=== PATIENT | female | born 1945 | race Caucasian/White ===

== ENCOUNTER 2016-10-03 06:50 | Day surgery (SDC) | payer MEDICARE ==
[~2016-10-03] VITALS: Ht 162.6 cm; Wt 48.4 kg
[~2016-10-03 06:50] MED LIST: ADVA250A INH; ALBUAER3 INH; CIPR500T2 PO; CREON12 PO; GABA600T PO; LEVO25TA4 PO; METO-309 PO; OMEP20TA PO; PLAV75TA29 PO; PRED20 PO; PRIM50TA5 PO; WALKER/ADULT/FO1 MIS; WHEEMIS3
[2016-10-03] MEDS ORDERED: SODIUM BICARBONATE 100 MEQ in D5W 1000 ML IV SCH (07:30)
[2016-10-03 07:38] VITALS: BP 197/101; PULSE 79; RESP 18; TEMP 97.9; O2SAT 99
[2016-10-03] MEDS ORDERED: POTA10TA8 PO (07:52)
[2016-10-03] MEDS ORDERED: GUAISYP4 PO (07:52)
[2016-10-03] MEDS ORDERED: FLUT1SPR5 EACH NARE (07:52)
[2016-10-03] MEDS ORDERED: PANT20TA2 PO (07:52)
[2016-10-03 09:07] LABS: AUTOMATED NEUTROPHIL # 4.3 TH/MM3 (1.8-7.7); BASOPHIL # 0.1 TH/MM3 (0-0.2); BASOPHIL % 1.3 % (0.0-2.0); EOSINOPHIL # 0.1 TH/MM3 (0-0.4); HEMATOCRIT 36.7 % (35.0-46.0); HEMO FLAGS DIFF FINAL; LYMPH % 20.6 % (9.0-44.0); LYMPHOCYTE # 1.3 TH/MM3 (1.0-4.8); MEAN CELL VOLUME 90.7 FL (80.0-100.0); MEAN CORPUSCULAR HEMOGLOBIN 30.9 PG (27.0-34.0); MONO % 8.7 % (0.0-8.0); NEUT % 67.4 % (16.0-70.0); PLATELET COUNT 306 TH/MM3 (150-450); RED BLOOD COUNT 4.05 MIL/MM3 (4.00-5.30); RED CELL DISTRIBUTION WIDTH 13.9 % (11.6-17.2); WHITE BLOOD COUNT 6.4 TH/MM3 (4.0-11.0)
[2016-10-03 09:16] LABS: APTT (PATIENT) 24.5 SEC (24.3-30.1); INTERNATIONAL NORMALIZED RATIO 0.9 RATIO; PROTHROMBIN TIME - PATIENT 10.4 SEC (9.8-11.6)
[2016-10-03] MEDS ORDERED: HEPARIN-NS/PF INJ 500 ML ONE (09:19)
[2016-10-03] MEDS ORDERED: MIDAZOLAM HCL 2 MG/2 ML VIAL ONE ×2 (09:19→11:03)
[2016-10-03 09:24] LABS: BICARBONATE 28.1 MEQ/L (21.0-32.0); POTASSIUM 3.9 MEQ/L (3.5-5.1)
[2016-10-03] MEDS ORDERED: HEPARIN SODIUM - IV 10,000 UNITS/10 ML VIAL ONE (10:03)
[2016-10-03] MEDS ORDERED: NITROGLYCERIN INJ 5 ML ONE (10:03)
[2016-10-03] MEDS ORDERED: VERAPAMIL HCL 5 MG/2 ML VIAL ONE (10:08)
[2016-10-03] MEDS ORDERED: PROTAMINE SULFATE 50 MG/5 ML VIAL ONE (11:00)
[2016-10-03] MEDS ORDERED: IOHEXOL 350 MG/ML 100 ML BTL (for Cath Lab) OTHER ONE (11:00)
[2016-10-03] MEDS ORDERED: METOPROLOL TARTRATE 50 MG TAB PO SCH (14:15)
[2016-10-03] MEDS ORDERED: PRIMIDONE 50 MG TAB PO SCH (14:15)
--- NOTE | 2016-10-04 18:37 | MP ---
cc: JOSEPH DONNELLY DATE OF SURGERY 10/03/16 PREOPERATIVE DIAGNOSIS Toe discoloration with a slow healing wound of the left lower extremity. POSTOPERATIVE DIAGNOSIS Toe discoloration with a slow healing wound of the left lower extremity. PROCEDURES 1. Angiogram of aorta with selective left lower extremity arteriogram. 2. Pelvic arteriogram. 3. Kissing stents with a right common iliac artery atrium I cast stent which is a 6 x 22 and then a left common iliac artery 7 x 59 SURGEON Ha Donnelly DO ESTIMATED BLOOD LOSS Minimal, moderate sedation COMPLICATIONS None. PROCEDURE IN DETAIL The patient's bilateral groins and legs were prepped and draped in sterile fashion after being under moderate sedation. I got access to the right common femoral artery using duplex ultrasound. I placed a 21-gauge needle, did an exchange for a 5-Mosotho sheath then I advanced an Omni flush catheter over stiff angled Glidewire in the abdominal aorta. I shot an AP aortogram. Then I pulled my catheter down into the distal abdominal aorta and I shot pelvic oblique arteriograms. Then I did a nonselective angiogram of the left lower extremity from the distal abdominal aorta. My findings were that the abdominal aorta was patent with calcification. The bilateral renal arteries were patent. The [place] appeared to be patent. 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 On the left, there was an eccentric calcification with at least a moderate stenosis with a post aneurysmal dilatation of the left common iliac artery. Bilateral hypogastric arteries and external iliac arteries were patent. On the right side, the common femoral had some calcification, but the profunda and proximal SFA were patent. On the left side, the left common femoral and profunda femoral arteries were widely patent. The left superficial femoral artery, popliteal artery was patent. Below the level of the knee, it was hard to tell the exact flow, although it appeared that the anterior tibial artery was delayed in comparison to the tibia and peroneal arteries. It appeared that the plantar artery crossed the level of the ankle into the foot. We then exchanged 6 cm 45 cm destination in the right and 7 mm, 45 cm destination sheath on the left. I advanced these into the distal abdominal aorta then we heparinized the patient to an ACT of around 280. I then deployed a 6 x 22 and a 7 x 59 kissing stents simultaneously on the right and left respectively. Afterwards, there was no drop in blood pressure or extravasation. There was patent flow through both of the stents. Preoperatively, there was not palpable femoral pulses and, after deployment of the stents, there was palpable femoral pulses bilaterally in the groins. At the end of the procedure, there was good flow through the bilateral common iliac arteries and outflow into the iliac vessels with palpable femoral pulses. We then, after the ACT was less than 200, pulled the sheaths from the bilateral groins. We did exchange for short 6-Mosotho to 7-Mosotho sheaths from the right and left sided respectively. DO CYRUS Maria/ /11:14 AM /6:12 PM [facility]ill
== END 2016-10-03 16:58 | disposition home or self-care (01) ==
LOC: HDOC 06:50 → HDIC 06:51 → HDOC 16:58
PROVIDERS: ATTEND Surgery
DX: I70.213 Atherosclerosis of native arteries of extremities with intermittent claudication, bilateral legs (principal); I10 Essential (primary) hypertension; J44.9 Chronic obstructive pulmonary disease, unspecified
CPT/HCPCS: 36200; 37221; 37223; 75625; 75710; 76937; 80048; 85002; 85025; 85610; 85730; C1751; C1769; C1874; C1893; J1644; J2250; J2720; J3010; Q9967

== ENCOUNTER → 2016-12-12 | Outpatient (CLI) | payer MEDICARE ==
[~2016-12-12] MED LIST changes: -CIPR500T2 PO; +FLUT1SPR5 EACH NARE; +GUAISYP4 PO; -OMEP20TA PO; +PANT20TA2 PO; +POTA10TA8 PO; -PRED20 PO; -WALKER/ADULT/FO1 MIS
[2016-12-12 15:18] LABS: CHLORIDE 92 MEQ/L (98-107); POTASSIUM 4.1 MEQ/L (3.5-5.1); SODIUM (NA) 127 MEQ/L (136-145)
[2016-12-12 15:26] LABS: ANION GAP 8 MEQ/L (5-15); BICARBONATE 26.6 MEQ/L (21.0-32.0)
[2016-12-12 15:27] LABS: BLOOD UREA NITROGEN 9 MG/DL (7-18)
[2016-12-12 15:29] LABS: AST (GOT) 19 U/L (15-37); TOTAL BILIRUBIN ADULT 0.4 MG/DL (0.2-1.0)
[2016-12-12 15:30] LABS: ALKALINE PHOSPHATASE 121 U/L (45-117); ALT (GPT) 17 U/L (10-53); GLOMERULAR FILTRATION RATE 70 ML/MIN (>89)
[2016-12-12 16:16] LABS: AUTOMATED NEUTROPHIL # 2.8 TH/MM3 (1.8-7.7); BASOPHIL % 0.9 % (0.0-2.0); EOSINOPHIL # 0.2 TH/MM3 (0-0.4); EOSINOPHIL % 3.2 % (0.0-4.0); HEMATOCRIT 39.4 % (35.0-46.0); HEMO FLAGS DIFF FINAL; LYMPH % 33.8 % (9.0-44.0); LYMPHOCYTE # 1.8 TH/MM3 (1.0-4.8); MEAN CORPUSCULAR HEMOGLOBIN 28.7 PG (27.0-34.0); MEAN CORPUSCULAR HGB CONC 33.3 % (32.0-36.0); MONO % 7.5 % (0.0-8.0); NEUT % 54.6 % (16.0-70.0); PLATELET COUNT 254 TH/MM3 (150-450); RED BLOOD COUNT 4.58 MIL/MM3 (4.00-5.30); RED CELL DISTRIBUTION WIDTH 15.1 % (11.6-17.2); WHITE BLOOD COUNT 5.2 TH/MM3 (4.0-11.0)
== END ==
LOC: PLAB 14:04
PROVIDERS: ATTEND Family Medicine
DX: R41.82 Altered mental status, unspecified (principal); E03.8 Other specified hypothyroidism; D64.9 Anemia, unspecified; E87.1 Hypo-osmolality and hyponatremia
CPT/HCPCS: 36415; 80053; 84443; 85025